=== PATIENT | female | born 1990 | race Caucasian/White ===

== ENCOUNTER 2018-04-05 21:59 | Emergency (ER) | payer OTHER ==
[~2018-04-05] VITALS: Ht 152.4 cm; Wt 54.0 kg
[2018-04-05 22:05] VITALS: Ht 152.4 cm; Wt 54.0 kg
[2018-04-05 22:58] LABS: BASOPHIL % 0.4 % (0-2); PLATELET COUNT 347 x10^3mcL (130-400); RED CELL DISTRIBUTION WIDTH 13.4 % (11.5-14.5)
[2018-04-05 23:11] LABS: CALCIUM 9.2 mg/dL (8.5-10.1); CARBON DIOXIDE 25.8 mmol/L (21-32); CHLORIDE SERUM 104 mmol/L (98-107); CREATININE SERUM 0.6 mg/dL (0.6-1.0); GFR1 > 60 mL/min; GLUCOSE SERUM 103 mg/dL (74-106); POTASSIUM SERUM 3.5 mmol/L (3.5-5.1); SODIUM SERUM 142 mmol/L (136-145)
[2018-04-05 23:16] LABS: ALBUMIN 3.4 g/dL (3.4-5.0); ALKALINE PHOSPHATASE 162 U/L (46-116); ALT/SGPT 43 U/L (14-59); AST/SGOT 20 U/L (15-37); BILIRUBIN TOTAL 0.2 mg/dL (0.20-1.00); TOTAL PROTEIN, SERUM 7.9 g/dL (6.4-8.2)
[2018-04-05 23:37] LABS: UA SPECIFIC GRAVITY >=1.030 (1.005-1.035); microscopic required? YES; urine erythrocyte 1+ (NEGATIVE)
[2018-04-06 00:15] VITALS: BP 130/72
[2018-04-06 01:13] LABS: MAGNESIUM 1.7 mg/dL (1.8-2.4)
[2018-04-06 01:21] LABS: CHOLESTEROL/HDL RATIO 2.3
== END 2018-04-06 00:50 | disposition left against medical advice (07) ==
LOC: ED 21:59 → IC 04-06 00:20 → ED 04-06 00:20 → IC 04-06 00:28
PROVIDERS: Internal Medicine; Student in an Organized Health Care Education/Training Program
DX: T43.625A Adverse effect of amphetamines, initial encounter (principal); Z98.890 Other specified postprocedural states; Y92.89 Other specified places as the place of occurrence of the external cause; R00.0 Tachycardia, unspecified
CPT/HCPCS: 84439; G0480; J2060; J7030; Q0092